=== PATIENT | female | born 1965 | race Caucasian/White ===

== ENCOUNTER 2021-03-24 08:21 | Observation (INO) ==
[2021-03-24] MEDS ORDERED: Aspirin 81 MG TAB.CHEW PO ONE (08:29)
[2021-03-24] MEDS ORDERED: Nitroglycerin 0.4 MG TAB.SUBL SL PRN (08:47)
[2021-03-24] MEDS ORDERED: 0.9 % Sodium Chloride 500 ML IVC STA (08:48)
[2021-03-24 09:01] LABS: Basophils % 0.9 %; Eosinophils # 0.1 K/mcL (0.0-0.6); Eosinophils % 1.7 %; Hematocrit 42.8 % (35.3-44.9); Hemoglobin 13.1 g/dL (11.5-15.4); Immature Granulocytes % 0.2 % (0-4); Lymphocytes # 1.6 K/mcL (0.6-4.6); Lymphocytes % 34.3 %; Mean Corpuscular HGB Conc 30.6 g/dL (31.6-35.5); Mean Corpuscular Hemoglobin 25.5 pg (28.0-33.3); Mean Corpuscular Volume 83.4 fL (83.0-100.0); Monocytes # 0.3 K/mcL (0.0-1.3); Monocytes % 6.7 %; Neutrophils # 2.6 K/mcL (1.6-8.9); Platelet Count 206 K/mcL (140-400); Red Blood Count 5.13 M/mcL (3.82-4.97); Red Cell Distribution Width 14.7 % (11.5-14.5); Segmented Neutrophils % 56.2 %; White Blood Count 4.6 K/mcL (4.3-11.1)
[2021-03-24 09:07] LABS: INR 1.2; Prothrombin Time 13.4 Seconds (9.4-12.1)
[2021-03-24 09:10] LABS: Activated Partial Thrombo Time 29.8 Seconds (26.0-36.0)
[2021-03-24] MEDS ORDERED: Isovue-370 500 ML BOTTLE IVP ONE (09:38)
[2021-03-24 09:42] LABS: BUN/Creatinine Ratio 16 (6-26); Blood Urea Nitrogen 16 mg/dL (6-20); Calcium 9.6 mg/dL (8.6-10.3); Carbon Dioxide 19 mEq/L (23-29); Chloride 107 mEq/L (98-107); Glucose 150 mg/dL (70-105); Osmolality,Calculated 292 (280-300); Potassium 3.7 mEq/L (3.5-5.1); Sodium 139 mEq/L (136-145); Troponin I < 0.03 ng/mL (< 0.04); eGFR For African Americans > 60 (> 60); eGFR For Non-African Americans 56 (> 60)
[2021-03-24 09:49] LABS: Adenovirus Not Detected (Not Detect); Bordetella Pertussis Not Detected (Not Detect); Chlamydophila pneumoniae Not Detected (Not Detect); Coronavirus 229E Not Detected (Not Detect); Coronavirus HKU1 Not Detected (Not Detect); Coronavirus NL63 Not Detected (Not Detect); Coronavirus OC43 Not Detected (Not Detect); Human Metapneumovirus Not Detected (Not Detect); Human Rhinovirus/Enterovirus Not Detected (Not Detect); Influenza A Subtype 2009 H1 Not Detected (Not Detect); Influenza B Not Detected (Not Detect); Mycoplasma pneumoniae Not Detected (Not Detect); Parainfluenza Virus 1 Not Detected (Not Detect); Parainfluenza Virus 2 Not Detected (Not Detect); Parainfluenza Virus 3 Not Detected (Not Detect); Parainfluenza Virus 4 Not Detected (Not Detect); Respiratory Syncytial Virus Not Detected (Not Detect); SARS-CoV-2 Not Detected (Not Detect)
[2021-03-24] MEDS ORDERED: Naloxone 0.4 MG/ML INJ IVP PRN (12:13)
[2021-03-24] MEDS ORDERED: Perflutren Lipid Microsphere 1.3 ML in 0.9 % Sodium Chloride 8.7 ML IVP PRN (13:48)
[2021-03-24] MEDS ORDERED: D5% in Water 1,000 ML IVC PRN (14:16)
[2021-03-24] MEDS ORDERED: *HR* Dextrose 50 % in Water (Vial) 50 ML VIAL IVP PRN (14:16)
[2021-03-24] MEDS ORDERED: Dextrose Gel 15 GM/37.5 ML TUBE PO PRN ×2 (14:16)
[2021-03-24] MEDS ORDERED: Fluticasone Propionate Nasal 50 MCG/SPRAY BOTTLE NS PRN (14:28)
[2021-03-24] MEDS: Insulin LISPRO 300 UNITS/3 ML VIAL SUBQ SCH ×2 (16:47→17:38)
[2021-03-24] MEDS ORDERED: Insulin LISPRO 300 UNITS/3 ML VIAL SUBQ SCH (21:00)
[2021-03-25] MEDS ORDERED: *HR* Enoxaparin 40 MG/0.4 ML SYRINGE SQ SCH (06:00)
[2021-03-25] MEDS: Insulin LISPRO 300 UNITS/3 ML VIAL SUBQ SCH ×2 (07:39→11:57)
[2021-03-25] MEDS ORDERED: PARoxetine 20 MG TABLET PO SCH (09:00)
[2021-03-25] MEDS ORDERED: Aspirin Enteric Coated 81 MG Tablet PO SCH (09:00)
[2021-03-25] MEDS ORDERED: Ondansetron 4 MG/2 ML VIAL IVP PRN (12:46)
[2021-03-25] MEDS ORDERED: ISOVUE-370 200 ML INFUS..BTL ONE (13:03)
[2021-03-25] MEDS ORDERED: *HR* Heparin 10,000 UNIT/10 ML VIAL ONE (13:03)
[2021-03-25] MEDS ORDERED: Heparin 1,000 UNITS/500 mL 500 ML ONE (13:03)
[2021-03-25] MEDS ORDERED: Nitroglycerin 1,000 MCG/5 ML VIAL IV ONE (13:03)
[2021-03-25] MEDS ORDERED: 0.9 % Sodium Chloride 2,000 ML ONE (13:03)
[2021-03-25] MEDS ORDERED: *HR* FentaNYL (PF) 100 MCG/2 ML VIAL ONE (13:10)
[2021-03-25] MEDS ORDERED: *HR* Midazolam HCl 2 MG/2 ML VIAL ONE (13:10)
[2021-03-25 15:33] VITALS: BP 106/65
== END 2021-03-25 15:46 | disposition home or self-care (01) ==
LOC: 3ANU 08:21 → EMEROOARM 08:21 → SUATTDRO 13:11 → 3ANU 14:16
PROVIDERS: ADMIT Internal Medicine; ATTEND Internal Medicine